=== PATIENT | female | born 1960 | race Caucasian/White ===

== ENCOUNTER → 2023-06-05 07:28 | Outpatient (REF) | payer OTHER, SELFPAY | LOC: HWRAD 07:28 | PROVIDERS: ATTENDING PHYSICIAN Internal Medicine; FAMILY PHYSICIAN Internal Medicine | DX: Z13.820 Encounter for screening for osteoporosis (principal); M81.0 Age-related osteoporosis without current pathological fracture; M54.9 Dorsalgia, unspecified | CPT/HCPCS: 72070; 72100; 77080; 77081 ==

== ENCOUNTER → 2023-09-29 15:51 | Outpatient (REF) | payer OTHER, SELFPAY | LOC: HWRAD 15:51 | PROVIDERS: ATTENDING PHYSICIAN Physician Assistant; FAMILY PHYSICIAN Internal Medicine | DX: M25.50 Pain in unspecified joint (principal); M25.551 Pain in right hip; M25.552 Pain in left hip; M25.562 Pain in left knee | CPT/HCPCS: 73523; 73562 ==

== ENCOUNTER → 2024-05-23 13:14 | Outpatient (REF) | payer BC, SELFPAY | LOC: RAD 13:14 | PROVIDERS: ATTENDING PHYSICIAN Internal Medicine | DX: M79.605 Pain in left leg (principal) | CPT/HCPCS: 93971 ==

== ENCOUNTER → 2024-09-21 16:20 | Outpatient (REF) | payer BC, SELFPAY | LOC: HWRAD 16:20 | PROVIDERS: ATTENDING PHYSICIAN Podiatrist Foot & Ankle Surgery; FAMILY PHYSICIAN Internal Medicine | DX: M19.071 Primary osteoarthritis, right ankle and foot (principal); M19.072 Primary osteoarthritis, left ankle and foot | CPT/HCPCS: 73630 ==

== ENCOUNTER → 2024-10-23 06:35 | Outpatient (REF) | payer BC, SELFPAY | LOC: MRI 06:35 | PROVIDERS: ATTENDING PHYSICIAN Internal Medicine | DX: R47.89 Other speech disturbances (principal); R26.89 Other abnormalities of gait and mobility | CPT/HCPCS: 70551 ==

== ENCOUNTER → 2024-11-19 12:49 | Outpatient (REF) | payer BC, SELFPAY | LOC: PAVMRI 12:49 | PROVIDERS: ATTENDING PHYSICIAN Psychiatry & Neurology Neurology; FAMILY PHYSICIAN Internal Medicine | DX: M54.14 Radiculopathy, thoracic region (principal) | CPT/HCPCS: 72146 ==

== ENCOUNTER 2025-02-17 06:31 | Day surgery (SDC) | payer BC, SELFPAY ==
[2025-02-17 07:43] LABS: Glucose - Point of Care 157 mg/dl (70-99)
== END 2025-02-17 09:36 | disposition home or self-care (01) ==
LOC: GI 06:31
PROVIDERS: ATTENDING PHYSICIAN Internal Medicine Gastroenterology
DX: Z12.11 Encounter for screening for malignant neoplasm of colon (principal); K57.30 Diverticulosis of large intestine without perforation or abscess without bleeding; K64.9 Unspecified hemorrhoids; K62.89 Other specified diseases of anus and rectum; D12.2 Benign neoplasm of ascending colon; D12.3 Benign neoplasm of transverse colon; K63.5 Polyp of colon; Z86.0100 Personal history of colon polyps, unspecified
CPT/HCPCS: 45380; 82962; 88305